=== PATIENT | female | born 1985 | race Asian ===

== ENCOUNTER 2017-03-02 01:15 | Inpatient (IN) | payer SELFPAY ==
[~2017-03-02] VITALS: Ht 169 cm; Wt 69.9 kg
[2017-03-02] MEDS ORDERED: OXYTOCIN 10 UNITS/ML VIAL IM SCH (01:50)
[2017-03-02] MEDS ORDERED: OXYTOCIN 20 UNITS/LR PREMIX 1,000 ML IV PRN (01:50)
[2017-03-02] MEDS ORDERED: NALBUPHINE 10 MG/ML AMP IVP PRN (01:50)
[2017-03-02] MEDS ORDERED: METHYLERGONOVINE 0.2 MG/ML AMP IM SCH (01:50)
[2017-03-02] MEDS ORDERED: CARBOPROST 250 MCG/ML AMP IM PRN (01:50)
[2017-03-02] MEDS ORDERED: PROMETHAZINE 25 MG/ML VIAL IVP PRN (01:50)
[2017-03-02] MEDS: LACTATED RINGERS 1,000 ML IV SCH ×2 (02:52→11:00)
[2017-03-02 02:53] LABS: BASOPHILS # (AUTO) 0.1 K/uL (0.00-0.22); BASOPHILS % (AUTO) 1.4 % (0.0-2.0); EOSINOPHILS # (AUTO) 0.1 K/uL (0-0.4); EOSINOPHILS % (AUTO) 1.8 % (0.0-4.0); HEMATOCRIT 36.8 % (36-48); HEMOGLOBIN 12.1 g/dL (12.0-16.0); LYMPHOCYTES # (AUTO) 1.5 K/uL (2.5-16.5); LYMPHOCYTES % (AUTO) 25.1 % (20.5-51.1); MEAN CORPUSCULAR HEMOGLOBIN 32 pg (27-31); MEAN CORPUSCULAR HGB CONC 33 g/dL (33-37); MEAN CORPUSCULAR VOLUME 97 fL (80-94); MONOCYTES # (AUTO) 0.4 K/uL (0.8-1.0); MONOCYTES % (AUTO) 7.2 % (1.7-9.3); NEUTROPHILS # (AUTO) 3.7 K/uL (1.8-7.7); NEUTROPHILS % (AUTO) 64.5 % (42.2-75.2); PLATELET COUNT (AUTO) 168 K/uL (140-450); RED BLOOD CELL COUNT(AUTO) 3.78 MIL/uL (4.20-5.40); RED CELL DISTRIBUTION WIDTH 12.6 % (11.6-13.7); WHITE BLOOD COUNT (AUTO) 5.8 K/uL (4.8-10.8)
[2017-03-02 02:59] LABS: APPEARANCE,URINE HAZY (CLEAR); BILIRUBIN,URINE NEGATIVE (NEGATIVE); BLOOD, URINE 3+ (NEGATIVE); COLOR,URINE YELLOW (YELLOW); LEUKOCYTE ESTERASE ,URINE 1+ (NEGATIVE); NITRITE, URINE NEGATIVE (NEGATIVE); PH,URINE 7.5 (5.0-9.0); PROTEIN,URINE TRACE (NEGATIVE); UGLUCOSE NEGATIVE (NEGATIVE); UROBILINOGEN,URINE 0.2 EU/dL (0.2 - 1)
[2017-03-02] MEDS ORDERED: CLINDAMYCIN 900 MG/6 ML VIAL IV ONE (03:05)
[2017-03-02 03:11] LABS: BACTERIA,URINE 1+ /HPF (None Seen); RBC,URINE 0-5 (RARE) /HPF (0-5); SQUAMOUS EPITHELIAL CELL,UR 4-10 (MOD) /LPF (0-3 (FEW))
[2017-03-02 03:16] LABS: HIV RAPID SCREEN NON-REACTIVE (NON REACTIV)
[2017-03-02 03:40] VITALS: BP 123/71
[2017-03-02] MEDS ORDERED: CLINDAMYCIN 900 MG in DEXTROSE 5% 100 ML IV SCH ×3 (05:00→11:00)
[2017-03-02] MEDS ORDERED: ROPIVACAINE 0.2%/NS PREMIX 250 ML EPI ONE (07:55)
[2017-03-02] MEDS ORDERED: MEASLES, MUMPS, AND RUBELLA 1 VIAL SQVAC PRN (14:50)
[2017-03-02] MEDS ORDERED: oxyCODONE/APAP 5/325 MG 1 TAB TAB PO PRN (14:50)
[2017-03-02] MEDS ORDERED: BENZOCAINE/MENTHOL 20%-0.5% 60 GM CAN TP PRN (14:50)
[2017-03-02] MEDS ORDERED: METHYLERGONOVINE 0.2 MG/ML AMP IM PRN (14:50)
[2017-03-02] MEDS ORDERED: TEMAZEPAM 15 MG CAP PO PRN (14:50)
[2017-03-02] MEDS ORDERED: WITCH HAZEL 40 PAD PACKAGE TP PRN (14:50)
[2017-03-02] MEDS ORDERED: DOCUSATE SOD/SENNA 50/8.6 MG 1 TAB PO SCH (21:00)
[2017-03-02] MEDS: IBUPROFEN 800 MG TAB PO PRN (21:24)
[2017-03-03 06:03] LABS: HEMATOCRIT 29.8 % (36-48); HEMOGLOBIN 10.1 g/dL (12.0-16.0)
[2017-03-03] MEDS: IBUPROFEN 800 MG TAB PO PRN (08:50)
--- NOTE | 2017-03-03 09:04 | NUR ---
PATIENT HAS BEEN SCREENED AND CATEGORIZED LOW NUTRITION RISK. PATIENT WILL BE SEEN WITHIN 7 DAYS OF ADMISSION. 03/09/[address]
[2017-03-04] MEDS: HYDROcodone/APAP 5/325 MG 1 TAB TAB PO PRN ×2 (01:21→10:21)
[2017-03-04 10:35] LABS: RAPID PLASMA REAGIN NON-REACTIVE (Non Reactiv)
== END 2017-03-04 15:30 | disposition home or self-care (01) | DRG 775 ==
LOC: MFCC 01:15 → OBSVTOIN 01:45 → MFCC 02:07
PROVIDERS: ADMIT Obstetrics & Gynecology; ATTEND Obstetrics & Gynecology
PROC: 10D07Z6 Extraction of Products of Conception, Vacuum, Via Natural or Artificial Opening (ICD-10-PCS; principal; 2017-03-02)
PROC: 0W8NXZZ Division of Female Perineum, External Approach (ICD-10-PCS; 2017-03-02)
PROC: 00HU33Z Insertion of Infusion Device into Spinal Canal, Percutaneous Approach (ICD-10-PCS; 2017-03-02)
PROC: 3E0R3CZ (ICD-10-PCS; 2017-03-02)
DX: O69.81X0 Labor and delivery complicated by cord around neck, without compression, not applicable or unspecified (principal); O64.0XX0 Obstructed labor due to incomplete rotation of fetal head, not applicable or unspecified; E03.9 Hypothyroidism, unspecified; O99.824 Streptococcus B carrier state complicating childbirth; O99.284 Endocrine, nutritional and metabolic diseases complicating childbirth; Z37.0 Single live birth; Z83.49 Family history of other endocrine, nutritional and metabolic diseases; Z28.21 Immunization not carried out because of patient refusal; Z88.0 Allergy status to penicillin; Z3A.38 38 weeks gestation of pregnancy
CPT/HCPCS: 36415; 51702; 81001; 85018; 85025; 86592; 86886; 86900; 86901; 87086; 90715; G0378; J2590; J2795; J3490; J7060; J7120